=== PATIENT | female | born 1985 | race Caucasian/White ===

== ENCOUNTER 2020-12-19 15:53 | Inpatient (IN) ==
[2020-12-19] MEDS ORDERED: ALBUTEROL 2.5 MG/3 ML NEB RESP TX STA (16:36)
[2020-12-19] MEDS ORDERED: cefTRIAXone 1,000 MG in SODIUM CHLORIDE 0.9% 100 ML IV STA (18:14)
[2020-12-19] MEDS ORDERED: DEXAMETHASONE 4 MG/1 ML VIAL IV STA (18:16)
[2020-12-19 18:44] LABS: Basophils % 0.2 % (0.0-0.8); Eosinophils % 0.9 % (0.00-10.9); Hematocrit 39.7 VOL% (35.7-47.0); Hemoglobin 12.4 GM/DL (12.0-16.0); Immature Granulocytes % 0.6 %; Immature Granulocytes Absolute 0.03 #; Lymphocytes # 0.8 10*3/uL (1.4-4.0); Lymphocytes % 17.3 % (21.3-54.2); Mean Corpuscular HGB Conc 31.2 GM/DL (32-36); Mean Corpuscular Volume 84.5 FL (87-102); Mean Platelet Volume 11.5 FL (9.6-12.0); Monocytes % 9.9 % (1.7-12.7); Neutrophils % 71.1 % (38.7-73.9); Platelet Count 274 T/CUMM (130-400); Red Cell Distribution Width 13.5 % (9.3-17.3); White Blood Count 4.6 T/CUMM (4-12)
[2020-12-19 18:53] LABS: PT Patient Result 10.8 SECS (10.5-12.0)
[2020-12-19 19:09] LABS: Albumin 2.8 G/DL (3.4-5.0); Bilirubin,Total 0.4 MG/DL (0.2-1.0); Calcium 8.4 MG/DL (8.5-10.1); Osmolality,Calculated 270.8 MOS/KG (273-304); Potassium 3.1 MMOL/L (3.5-5.1); Total Protein 7.7 G/DL (6.4-8.2)
[2020-12-19 19:12] LABS: Anisocytosis Slight; Band Neutrophils 1 % (0-10); Eosinophils 1 % (0-10); Hypochromasia Slight; Lymphocytes 17 % (20-55); Segmented Neutrophils 72 % (50-85); Total Cells Counted 100
[2020-12-19 19:13] LABS: Platelet Estimate Adequate; Polychromasia Slight
[2020-12-19] MEDS ORDERED: POTASSIUM CHLORIDE 20 MEQ TABLET PO STA (19:17)
[2020-12-19] MEDS ORDERED: ENOXAPARIN 30 MG/0.3 ML SYRINGE SUBCUT STA (19:37)
[2020-12-19] MEDS ORDERED: DEXTROSE 50% 25 GM/50 ML VIAL IV PRN (19:40)
[2020-12-19] MEDS ORDERED: GLUCAGON 1 MG VIAL IM PRN (19:40)
[2020-12-19] MEDS ORDERED: ENOXAPARIN 120 MG/0.8 ML SYRINGE SUBCUT ONE (19:44)
[2020-12-19] MEDS: ASCORBIC ACID 500 MG TABLET PO SCH (21:13)
[2020-12-19] MEDS: ALBUTEROL INHALER 18 GM INH SCH (21:50)
[2020-12-20] MEDS: ALBUTEROL INHALER 18 GM INH SCH ×3 (01:30→13:07)
[2020-12-20 04:51] VITALS: BP 108/74
[2020-12-20 05:56] LABS: Basophils % 0.5 % (0.0-0.8); Hematocrit 40.2 VOL% (35.7-47.0); Hemoglobin 12.2 GM/DL (12.0-16.0); Immature Granulocytes % 1.1 %; Immature Granulocytes Absolute 0.02 #; Lymphocytes # 0.5 10*3/uL (1.4-4.0); Lymphocytes % 24.5 % (21.3-54.2); Mean Corpuscular HGB Conc 30.3 GM/DL (32-36); Mean Corpuscular Volume 85.9 FL (87-102); Mean Platelet Volume 11.9 FL (9.6-12.0); Monocytes % 6.4 % (1.7-12.7); Neutrophils % 67.5 % (38.7-73.9); Platelet Count 249 T/CUMM (130-400); Red Blood Count 4.68 MC/CUMM (3.8-5.5); Red Cell Distribution Width 13.6 % (9.3-17.3); White Blood Count 1.9 T/CUMM (4-12)
[2020-12-20 06:20] LABS: Ferritin 135.3 ng/ml (8-252); Hypochromasia 1+; Lymphocytes 19 % (20-55); Microcytosis 1+; Platelet Estimate Adequate; Segmented Neutrophils 71 % (50-85); Total Cells Counted 100
[2020-12-20 06:25] LABS: Alanine Aminotransferase 45 U/L (13-56); Albumin 2.7 G/DL (3.4-5.0); Alkaline Phosphatase 98 U/L (45-117); Aspartate Amino Transferase 41 U/L (0-37); Bilirubin,Total < 0.39 MG/DL (0.2-1.0); Blood Urea Nitrogen 8 MG/DL (7-18); Calcium 8.5 MG/DL (8.5-10.1); Carbon Dioxide 31 MMOL/L (21-32); Estimated Glom Filtration Rate 119 ML/MIN; Glucose 141 MG/DL (74-106); Osmolality,Calculated 274.7 MOS/KG (273-304); Potassium 4.1 MMOL/L (3.5-5.1); Sodium 138 MMOL/L (136-145); Total Protein 7.4 G/DL (6.4-8.2)
[2020-12-20] MEDS: ASCORBIC ACID 500 MG TABLET PO SCH (08:28)
[2020-12-20] MEDS ORDERED: ENOXAPARIN 120 MG/0.8 ML SYRINGE SUBCUT SCH (09:00)
[2020-12-20] MEDS ORDERED: LEVOTHYROXINE 100 MCG TABLET PO SCH (09:00)
[2020-12-20] MEDS ORDERED: ZINC GLUCONATE 50 MG TABLET PO SCH (09:00)
[2020-12-20] MEDS ORDERED: DEXAMETHASONE 10 MG/1 ML VIAL IV SCH (09:00)
[2020-12-20] MEDS ORDERED: cefTRIAXone 1,000 MG in SODIUM CHLORIDE 0.9% 100 ML IV SCH (20:00)
[2020-12-20] MEDS ORDERED: AZITHROMYCIN INJ 250 MG in SODIUM CHLORIDE 0.9% 250 ML IV SCH (21:00)
== END 2020-12-20 16:17 | disposition home or self-care (01) | DRG 137 ==
LOC: N.ED 15:53 → N.EDINP 19:40 → SUATTDRO 19:40 → N.CC 20:21
PROVIDERS: ADMIT Emergency Medicine; ATTEND Internal Medicine